=== PATIENT | female | born 1975 | race African-American/Black ===

== ENCOUNTER 2018-02-24 00:25 | Emergency (ER) | payer OTHER ==
[2018-02-24 00:48] VITALS: BP 128/82; PULSE 82; TEMP 96.6; BMI 28.1
[2018-02-24] MEDS ORDERED: ACETAMINOPHEN 325 MG TABLET (FP) PO ONE (01:28)
[2018-02-24] MEDS ORDERED: AMOX TR/POT CLAV 875MG/125MG TABLETS (FP) PO ONE (01:28)
[2018-02-24] MEDS ORDERED: IBUPROFEN 600 MG TABLET (FP) PO ONE ×2 (01:28→01:58)
[2018-02-24] MEDS ORDERED: HALOPERIDOL LACTATE 5 MG/ML IM ONE (01:34)
[2018-02-24] MEDS ORDERED: MIDAZOLAM HCL 2 MG/2 ML SINGLE DOSE VIAL IM ONE (01:34)
--- NOTE | 2018-02-24 01:34 | PDOC ---
History of Present Illness - General Exam Limitations: No Limitations - History of Present Illness Initial Comments: 02/24/18 05:02 Patient is a 42 year old female who endorses a PMHx of psychiatric disorder and multiple injuries to RLE who presents to the ED with complaint of right leg pain that began just prior to ED arrival. As per EMS patient was experiencing gradually increased right leg pain as well as associated left molar pain. EMS reports patient insisted on being taken to [facility] for evaluation from [facility] location. While in triage, pt became acutely agitated. On history, she is disorganized and seems intoxicated but will not admit to drug abuse. Her behavior continued to escalate during her ED evaluation and she ultimately required IM medication for patient and staff safety. 1:1 max obs. Denies chest pain, Sob. Denies nausea, vomiting. Denies contact with sick individuals, out of state travelling. Denies dysuria, hematuria. Denies diarrhea , constipation. Denies trauma to affected area. Denies any other symptoms. Allergies: None Social history: Lives in [facility] Surgical history: Right leg ludy placement. PMD: None <Jean-Paul Mascorro - Last Filed: 02/24/18 05:02> - General History Source: Patient <Bere Munoz Candice - Last Filed: 02/24/18 06:14> - General Chief Complaint: Psychiatric Stated Complaint: ALTERED MENTA STATUS Time Seen by Provider: 02/24/18 01:00 Past History <Jean-Paul Mascorro - Last Filed: 02/24/18 05:02> - Suicide/Smoking/Psychosocial Hx Smoking History: Unknown if ever smoked Have you smoked in the past 12 months: No Information on smoking cessation initiated: No Hx Alcohol Use: No Drug/Substance Use Hx: No <Bere Munoz - Last Filed: 02/24/18 06:14> - Past Medical History Allergies/Adverse Reactions: Allergies Allergy/AdvReac Type Severity Reaction Status Date / Time No Known Allergies Allergy Verified 02/24/18 00:48 Home Medications: Ambulatory Orders Amoxicillin/Potassium Clav [Amox-Clav 875-125 mg Tablet] 1 each PO BID #14 tablet 02/24/18 Review of Systems - Review of Systems Able to Perform ROS?: Yes Comments:: 02/24/18 05:02 See HPI. All other systems reviewed and unremarkable <Jean-Paul Mascorro - Last Filed: 02/24/18 05:02> *Physical Exam - Vital Signs Last Vital Signs Temp Pulse Resp BP Pulse Ox 96.6 F L 82 18 128/82 97 02/24/18 00:30 02/24/18 00:30 02/24/18 00:30 02/24/18 00:30 02/24/18 00:30 - Physical Exam Comments: 02/24/18 05:02 General Physical Exam: NAD, discheveled EOMI, JUDI MMM, OP WNL NCAT, no midline cervical tenderness RRR, nl s1/s2, no m/r/g CTABL, no w/r/r Soft, NTND No edema, WWP, no rash Neuro grossly intact, gait WNL, moving all 4 agitated, disorganized thought process, labile. <Jean-Paul Mascorro - Last Filed: 02/24/18 05:02> - Vital Signs Last Vital Signs Temp Pulse Resp BP Pulse Ox 96.6 F L 82 18 128/82 97 02/24/18 00:30 02/24/18 00:30 02/24/18 00:30 02/24/18 00:30 02/24/18 00:30 <Bere Munoz - Last Filed: 02/24/18 06:14> ED Treatment Course - Medications Given in the ED: ED Medications Discontinued Medications Generic Name Dose Route Start Last Admin Trade Name Ashlee PRN Reason Stop Dose Admin Acetaminophen 650 mg 02/24/18 01:28 02/24/18 01:35 Tylenol - PO 02/24/18 01:29 650 mg ONCE ONE Administration Amoxicillin/Clavulanate Potassium 1 tab 02/24/18 01:28 02/24/18 01:40 Augmentin - 875mg Tablet PO 02/24/18 01:29 1 tab ONCE ONE Administration Haloperidol 5 mg 02/24/18 01:34 02/24/18 01:37 Haldol Injection (Fast Acting) - IM 02/24/18 01:35 5 mg ONCE ONE Administration Ibuprofen 600 mg 02/24/18 01:28 02/24/18 01:40 Motrin - PO 02/24/18 01:29 600 mg ONCE ONE Administration Midazolam HCl 3 mg 02/24/18 01:34 02/24/18 01:38 Versed - IM 02/24/18 01:35 3 mg ONCE ONE Administration <Jean-Paul Mascorro - Last Filed: 02/24/18 05:02> Medical Decision Making - Medical Decision Making 02/24/18 01:30 42yoF w/ psychiatric history, homeless residing in [facility] in the [place], multiple traumatic injuries to RLE presents complaing of 2 weeks of L posterior lower molar pain and chronic RLE pain. Pt became agitated upon arrival to ER requiring security observation,and sedation for patient and staff safetyl. - tylenol, ibuprofe - augmentin for likely dental infection - to f/u w/ her own dentist trice. 02/24/18 06:12 Pt calm an appropriate this morning. States her [facility] "wanted me to get checked out" becuase she missed her medications x "1 day". Denies SI/HI/AH/VH thought process organized. DC. <Bere Munoz - Last Filed: 02/24/18 06:14> *DC/Admit/Observation/Transfer - Attestations Scribe Attestion: 02/24/18 05:03 Documentation prepared by Jean-Paul Mascorro, acting as emergency medical technician/driver for Bere Munoz MD. <Jean-Paul Mascorro - Last Filed: 02/24/18 05:02> - Discharge Dispostion Decision to Admit order: No <Bere Munoz - Last Filed: 02/24/18 06:14> Diagnosis at time of Disposition: Agitation - Discharge Dispostion Disposition: HOME Condition at time of disposition: Fair - Prescriptions Prescriptions: Amoxicillin/Potassium Clav [Amox-Clav 875-125 mg Tablet] 1 each PO BID #14 tablet - Referrals Referrals: Love Nunn MD [Primary Care Provider] - - Patient Instructions Additional Instructions: Ms. Hernandez was observed overnight and cleared. Please see your dentist today or tomorrow for evaluation of possible tooth infection. Take all of your home medications as prescribed. Do not skip doses or days. Do not drink alcohol do not use drugs.
[2018-02-24] MEDS ORDERED: MIDAZOLAM HCL 2 MG/2 ML SINGLE DOSE VIAL ONE (01:37)
[2018-02-24] MEDS ORDERED: HALOPERIDOL LACTATE 5 MG/ML ONE (01:37)
[2018-02-24] MEDS ORDERED: ACETAMINOPHEN 325 MG TABLET (FP) ONE (01:57)
[2018-02-24] MEDS ORDERED: AMOX TR/POT CLAV 875MG/125MG TABLETS (FP) ONE (01:58)
== END 2018-02-24 07:03 | disposition home or self-care (01) ==
LOC: JER 00:25
PROC: 3E033NZ Introduction of Analgesics, Hypnotics, Sedatives into Peripheral Vein, Percutaneous Approach (ICD-10-PCS; principal; 2018-02-24)
PROC: 3E033NZ Introduction of Analgesics, Hypnotics, Sedatives into Peripheral Vein, Percutaneous Approach (ICD-10-PCS; 2018-02-24)
DX: R45.1 Restlessness and agitation (principal); K04.7 Periapical abscess without sinus
CPT/HCPCS: 96372; 99281-25

== ENCOUNTER 2022-03-12 14:34 | Inpatient (IN) | payer OTHER ==
[2022-03-12 15:31] VITALS: BMI 26.2
[2022-03-12] MEDS ORDERED: MAGNESIUM HYDROX 2400MG/30ML ORAL SUSPENSION 30 ML CUP PO PRN (17:57)
[2022-03-12] MEDS ORDERED: BENZOCAINE/MENTHOL (CHLORASEPTIC ) LOZENGE MM PRN (17:57)
[2022-03-12] MEDS ORDERED: IBUPROFEN 400 MG TABLET (FP) PO PRN (17:57)
[2022-03-12] MEDS ORDERED: ONDANSETRON *ODT* 4 MG TABLET SL PRN (17:57)
[2022-03-12] MEDS ORDERED: NICOTINE POLACRILEX 4 MG GUM BUC PRN (17:57)
[2022-03-12] MEDS ORDERED: MAGNESIUM CITRATE 300 ML BOTTLE PO PRN (17:57)
[2022-03-12] MEDS ORDERED: LOPERAMIDE HCL 2 MG CAPSULE PO PRN (17:57)
[2022-03-12] MEDS ORDERED: BISMUTH SUBSALICYLATE 524 MG/30 ML PO PRN (17:57)
[2022-03-12] MEDS ORDERED: MAG HYDROX/AL HYDROX/SIMETH 30 ML UNIT-DOSE CUP PO PRN (17:57)
[2022-03-12] MEDS ORDERED: NALOXONE HCL (KLOXXADO) 8 MG SPRAY NS PRN (17:57)
[2022-03-12] MEDS ORDERED: ACETAMINOPHEN 325 MG TABLET (FP) PO PRN ×2 (17:57)
[2022-03-12] MEDS ORDERED: ALBUTEROL SO4 HFA INHALER IH PRN (17:59)
[2022-03-12] MEDS ORDERED: hydrOXYzine PAMOATE 25 MG CAPSULE (FP) PO ONE (19:30)
[2022-03-12] MEDS ORDERED: chlordiazePOXIDE HCL 25 MG CAPSULE ONE ×2 (19:30→22:17)
[2022-03-12] MEDS ORDERED: DICYCLOMINE HCL 10 MG CAPSULE ONE (19:30)
[2022-03-12] MEDS: chlordiazePOXIDE HCL 25 MG CAPSULE PO PRN (19:41)
[2022-03-12] MEDS: hydrOXYzine PAMOATE 25 MG CAPSULE (FP) PO PRN (19:41)
[2022-03-12] MEDS: DICYCLOMINE HCL 10 MG CAPSULE PO PRN (19:41)
[2022-03-12] MEDS ORDERED: IBUPROFEN 600 MG TABLET (FP) PO ONE (22:17)
[2022-03-12] MEDS: chlordiazePOXIDE HCL 25 MG CAPSULE PO SCH (22:19)
[2022-03-12] MEDS: IBUPROFEN 600 MG TABLET (FP) PO PRN (22:19)
[2022-03-12] MEDS: MELATONIN 5 MG TABLETS PO SCH (22:19)
[2022-03-12] MEDS: THIAMINE HCL 100 MG TABLET (FP) PO SCH (22:19)
[2022-03-13] MEDS ORDERED: chlordiazePOXIDE HCL 25 MG CAPSULE ONE (04:50)
[2022-03-13] MEDS ORDERED: IBUPROFEN 400 MG TABLET (FP) PO ONE (05:13)
[2022-03-13] MEDS: chlordiazePOXIDE HCL 25 MG CAPSULE PO SCH ×4 (05:19→22:18)
[2022-03-13] MEDS: NICOTINE 21 MG/24 HOURS TOPICAL PATCH TD SCH (10:00)
[2022-03-13] MEDS: METHOCARBAMOL 500 MG TABLET PO PRN ×2 (10:00→17:44)
[2022-03-13] MEDS ORDERED: TOPIRAMATE 200 MG TABLET PO ONE (10:00)
[2022-03-13] MEDS: PRENATAL VITAMINS W/ FOLIC ACID TABLET (FP) PO SCH (10:12)
[2022-03-13 11:12] LABS: HEMATOCRIT 28.5 % (32.4-45.2); MCH 23.1 pg (25.7-33.7); MCHC 31.4 g/dl (32.0-36.0); MEAN CELL VOLUME 73.6 fl (80-96); MEAN PLT VOLUME 8.2 fl (7.5-11.1); PLATELET COUNT 395 10^3/uL (134-434); RBC 3.87 M/mm3 (3.60-5.2); RDW 18.9 % (11.6-15.6); WHITE BLOOD COUNT 6.4 K/mm3 (4.0-10.0)
[2022-03-13] MEDS ORDERED: TOPIRAMATE 200 MG TABLET PO SCH (11:45)
[2022-03-13 12:49] LABS: BLOOD UREA NITROGEN 11.4 mg/dL (7-18); CALCIUM 8.5 mg/dL (8.5-10.1); CREATININE 0.5 mg/dL (0.55-1.3)
[2022-03-13 12:52] LABS: BILIRUBIN,TOTAL 0.6 mg/dL (0.2-1); TOT PROT 6.5 g/dl (6.4-8.2)
[2022-03-13] MEDS: hydrOXYzine PAMOATE 25 MG CAPSULE (FP) PO PRN ×2 (17:44→22:18)
[2022-03-13] MEDS: IBUPROFEN 600 MG TABLET (FP) PO PRN (18:36)
[2022-03-13] MEDS: NICOTINE 10 MG CARTRIDGE (INHALER) IH PRN (20:37)
[2022-03-13] MEDS: QUEtiapine FUMARATE 200 MG TABLET PO SCH (22:18)
[2022-03-13] MEDS: MELATONIN 5 MG TABLETS PO SCH (22:18)
[2022-03-13] MEDS: THIAMINE HCL 100 MG TABLET (FP) PO SCH (22:18)
[2022-03-13] MEDS: TOPIRAMATE 100 MG TABLET PO SCH (22:20)
[2022-03-14] MEDS: chlordiazePOXIDE HCL 25 MG CAPSULE PO SCH ×4 (05:48→22:29)
[2022-03-14] MEDS: TOPIRAMATE 100 MG TABLET PO SCH ×2 (10:28→22:28)
[2022-03-14] MEDS: PRENATAL VITAMINS W/ FOLIC ACID TABLET (FP) PO SCH (10:29)
[2022-03-14] MEDS: NICOTINE 21 MG/24 HOURS TOPICAL PATCH TD SCH (10:29)
[2022-03-14] MEDS: METHOCARBAMOL 500 MG TABLET PO PRN ×2 (10:31→22:31)
[2022-03-14] MEDS: METHYL SALICYLATE/MENTHOL OINT 30 GM TUBE TP SCH ×2 (12:54→22:30)
[2022-03-14] MEDS: FERROUS SO4 325 MG TABLET (FP) PO SCH ×2 (12:54→18:14)
[2022-03-14 14:01] VITALS: RESP 18
[2022-03-14] MEDS: chlordiazePOXIDE HCL 25 MG CAPSULE PO PRN (18:14)
[2022-03-14] MEDS: THIAMINE HCL 100 MG TABLET (FP) PO SCH (22:28)
[2022-03-14] MEDS: QUEtiapine FUMARATE 200 MG TABLET PO SCH (22:28)
[2022-03-14] MEDS: MELATONIN 5 MG TABLETS PO SCH (22:28)
[2022-03-14] MEDS: NICOTINE 10 MG CARTRIDGE (INHALER) IH PRN (23:05)
[2022-03-15] MEDS ORDERED: chlordiazePOXIDE HCL 10 MG CAPSULE PO PRN
[2022-03-15] MEDS: chlordiazePOXIDE HCL 10 MG CAPSULE PO SCH ×2 (06:19→10:39)
[2022-03-15 07:00] VITALS: BP 105/61; PULSE 83; TEMP 97.7
[2022-03-15] MEDS: FERROUS SO4 325 MG TABLET (FP) PO SCH ×2 (07:11→13:05)
[2022-03-15] MEDS: PRENATAL VITAMINS W/ FOLIC ACID TABLET (FP) PO SCH (10:38)
[2022-03-15] MEDS: DICYCLOMINE HCL 10 MG CAPSULE PO PRN (10:38)
[2022-03-15] MEDS: METHYL SALICYLATE/MENTHOL OINT 30 GM TUBE TP SCH (10:38)
[2022-03-15] MEDS: NICOTINE 21 MG/24 HOURS TOPICAL PATCH TD SCH (10:38)
[2022-03-15] MEDS: TOPIRAMATE 100 MG TABLET PO SCH (10:38)
[2022-03-15] MEDS: IBUPROFEN 600 MG TABLET (FP) PO PRN (10:39)
[2022-03-16] MEDS ORDERED: chlordiazePOXIDE HCL 10 MG CAPSULE PO SCH (05:00)
[2022-03-17] MEDS ORDERED: chlordiazePOXIDE HCL 10 MG CAPSULE PO ONE (05:00)
== END 2022-03-15 13:33 | disposition left against medical advice (07) | DRG 770 ==
LOC: YASAS 14:34 → Y6N 03-13 09:25
PROVIDERS: ADMIT Allergy & Immunology; ATTEND Surgery
PROC: HZ2ZZZZ Detoxification Services for Substance Abuse Treatment (ICD-10-PCS; principal; 2022-03-13)
DX: F10.230 Alcohol dependence with withdrawal, uncomplicated (principal); F14.20 Cocaine dependence, uncomplicated; F17.210 Nicotine dependence, cigarettes, uncomplicated; F19.282 Other psychoactive substance dependence with psychoactive substance-induced sleep disorder; F19.24 Other psychoactive substance dependence with psychoactive substance-induced mood disorder; F32.9 Major depressive disorder, single episode, unspecified; D64.9 Anemia, unspecified; J45.909 Unspecified asthma, uncomplicated; Z98.84 Bariatric surgery status
CPT/HCPCS: 36415; 80053; 81025; 85027; 86780; 87811; C9803-CS; U0003; U0005

== ENCOUNTER 2022-09-15 16:22 | Inpatient (IN) | payer OTHER ==
[2022-09-15 18:12] VITALS: BMI 22.3
[2022-09-15] MEDS ORDERED: BENZONATATE 200 MG CAPSULE PO PRN (20:31)
[2022-09-15] MEDS ORDERED: IBUPROFEN 400 MG TABLET (FP) PO PRN (20:31)
[2022-09-15] MEDS ORDERED: ONDANSETRON *ODT* 4 MG TABLET SL PRN (20:31)
[2022-09-15] MEDS ORDERED: POLYETHYLENE GLYCOL (HEALTHYLAX) 3350 17 GM PACKET PO PRN (20:31)
[2022-09-15] MEDS ORDERED: BENZOCAINE/MENTHOL (CHLORASEPTIC ) LOZENGE MM PRN (20:31)
[2022-09-15] MEDS ORDERED: NALOXONE HCL 0.4 MG/ML VIAL IM PRN (20:31)
[2022-09-15] MEDS ORDERED: MAG HYDROX/AL HYDROX/SIMETH 30 ML UNIT-DOSE CUP PO PRN (20:31)
[2022-09-15] MEDS ORDERED: LOPERAMIDE HCL 2 MG CAPSULE PO PRN (20:31)
[2022-09-15] MEDS ORDERED: MAGNESIUM HYDROX 2400MG/30ML ORAL SUSPENSION 30 ML CUP PO PRN (20:31)
[2022-09-15] MEDS ORDERED: BISMUTH SUBSALICYLATE 524 MG/30 ML PO PRN (20:31)
[2022-09-15] MEDS ORDERED: NALOXONE HCL (KLOXXADO) 8 MG SPRAY NS PRN (20:31)
[2022-09-15] MEDS ORDERED: ACETAMINOPHEN 325 MG TABLET (FP) PO PRN (20:31)
[2022-09-15] MEDS ORDERED: guaiFENesin 600 MG TABLET.ER (FP) PO PRN (20:31)
[2022-09-15] MEDS ORDERED: NICOTINE POLACRILEX 2 MG GUM BUC PRN (20:31)
[2022-09-15] MEDS ORDERED: DICYCLOMINE HCL 10 MG CAPSULE PO PRN (20:31)
[2022-09-15] MEDS ORDERED: ALBUTEROL SO4 HFA INHALER IH PRN (20:46)
[2022-09-15] MEDS: METHOCARBAMOL 500 MG TABLET PO PRN (22:37)
[2022-09-15] MEDS: MELATONIN 5 MG TABLETS PO SCH (22:38)
[2022-09-15] MEDS: THIAMINE HCL 100 MG TABLET (FP) PO SCH (22:38)
[2022-09-16] MEDS ORDERED: ALBUTEROL SO4 HFA INHALER IH PRN (09:48)
[2022-09-16] MEDS ORDERED: chlordiazePOXIDE HCL 25 MG CAPSULE PO PRN (10:08)
[2022-09-16] MEDS: NICOTINE 21 MG/24 HOURS TOPICAL PATCH TD SCH (10:17)
[2022-09-16] MEDS: METHOCARBAMOL 500 MG TABLET PO PRN ×2 (10:17→17:52)
[2022-09-16] MEDS: IBUPROFEN 600 MG TABLET (FP) PO PRN (10:17)
[2022-09-16] MEDS: PRENATAL VITAMINS W/ FOLIC ACID TABLET (FP) PO SCH (10:19)
[2022-09-16] MEDS: chlordiazePOXIDE HCL 25 MG CAPSULE PO SCH ×3 (10:36→22:09)
[2022-09-16 11:40] LABS: HEMATOCRIT 34.8 % (32.4-45.2); HEMOGLOBIN 11.2 GM/dL (10.7-15.3); MCHC 32.2 g/dl (32.0-36.0); MEAN CELL VOLUME 77.7 fl (80-96); MEAN PLT VOLUME 9.5 fl (7.5-11.1); PLATELET COUNT 312 10^3/uL (134-434); RBC 4.48 M/mm3 (3.60-5.2); WHITE BLOOD COUNT 6.5 K/mm3 (4.0-10.0)
[2022-09-16 11:41] LABS: POTASSIUM 4.9 mmol/L (3.5-5.1)
[2022-09-16] MEDS ORDERED: TOPIRAMATE 200 MG TABLET PO SCH (11:45)
[2022-09-16 11:46] LABS: CALCIUM 9.5 mg/dL (8.5-10.1)
[2022-09-16 11:47] LABS: ALBUMIN 3.9 g/dl (3.4-5.0); BLOOD UREA NITROGEN 17.8 mg/dL (7-18)
[2022-09-16 11:50] LABS: CREATININE 0.7 mg/dL (0.55-1.3)
[2022-09-16 11:52] LABS: TOT PROT 8.2 g/dl (6.4-8.2)
[2022-09-16 11:54] LABS: BILIRUBIN,TOTAL 0.5 mg/dL (0.2-1)
[2022-09-16] MEDS: TOPIRAMATE 100 MG TABLET PO SCH ×2 (13:55→22:09)
[2022-09-16] MEDS: QUEtiapine FUMARATE 200 MG TABLET PO SCH (22:09)
[2022-09-16] MEDS: THIAMINE HCL 100 MG TABLET (FP) PO SCH (22:09)
[2022-09-16] MEDS: MELATONIN 5 MG TABLETS PO SCH (22:11)
[2022-09-17] MEDS: chlordiazePOXIDE HCL 25 MG CAPSULE PO SCH ×4 (05:52→22:24)
[2022-09-17] MEDS: METHOCARBAMOL 500 MG TABLET PO PRN ×2 (05:54→18:01)
[2022-09-17] MEDS: TOPIRAMATE 100 MG TABLET PO SCH ×2 (10:08→22:23)
[2022-09-17] MEDS: PRENATAL VITAMINS W/ FOLIC ACID TABLET (FP) PO SCH (10:09)
[2022-09-17] MEDS: NICOTINE 21 MG/24 HOURS TOPICAL PATCH TD SCH (10:11)
[2022-09-17] MEDS: IBUPROFEN 600 MG TABLET (FP) PO PRN ×2 (10:13→22:26)
[2022-09-17] MEDS: QUEtiapine FUMARATE 200 MG TABLET PO SCH (22:23)
[2022-09-17] MEDS: MELATONIN 5 MG TABLETS PO SCH (22:24)
[2022-09-17] MEDS: THIAMINE HCL 100 MG TABLET (FP) PO SCH (22:26)
[2022-09-18] MEDS: chlordiazePOXIDE HCL 25 MG CAPSULE PO SCH ×4 (05:50→22:38)
[2022-09-18] MEDS: NICOTINE 21 MG/24 HOURS TOPICAL PATCH TD SCH (10:15)
[2022-09-18] MEDS: TOPIRAMATE 100 MG TABLET PO SCH ×2 (10:16→22:39)
[2022-09-18] MEDS: PRENATAL VITAMINS W/ FOLIC ACID TABLET (FP) PO SCH (10:16)
[2022-09-18] MEDS: IBUPROFEN 600 MG TABLET (FP) PO PRN (10:17)
[2022-09-18] MEDS: THIAMINE HCL 100 MG TABLET (FP) PO SCH (22:38)
[2022-09-18] MEDS: QUEtiapine FUMARATE 200 MG TABLET PO SCH (22:38)
[2022-09-18] MEDS: MELATONIN 5 MG TABLETS PO SCH (22:42)
[2022-09-19] MEDS ORDERED: chlordiazePOXIDE HCL 10 MG CAPSULE PO PRN
[2022-09-19] MEDS: chlordiazePOXIDE HCL 10 MG CAPSULE PO SCH ×3 (06:00→17:54)
[2022-09-19] MEDS: METHOCARBAMOL 500 MG TABLET PO PRN ×2 (06:05→17:55)
[2022-09-19] MEDS: IBUPROFEN 600 MG TABLET (FP) PO PRN (06:05)
[2022-09-19] MEDS: PRENATAL VITAMINS W/ FOLIC ACID TABLET (FP) PO SCH (10:52)
[2022-09-19] MEDS: TOPIRAMATE 100 MG TABLET PO SCH (10:53)
[2022-09-19] MEDS: NICOTINE 21 MG/24 HOURS TOPICAL PATCH TD SCH (10:53)
[2022-09-19 21:04] VITALS: BP 117/74; PULSE 84; RESP 17; TEMP 97.5
[2022-09-20] MEDS ORDERED: chlordiazePOXIDE HCL 10 MG CAPSULE PO SCH (05:00)
[2022-09-21] MEDS ORDERED: chlordiazePOXIDE HCL 10 MG CAPSULE PO ONE (05:00)
== END 2022-09-19 23:30 | disposition left against medical advice (07) | DRG 770 ==
LOC: YASAS 16:22 → Y6N 21:29 → UNDOADMIN 21:29
PROVIDERS: ADMIT Allergy & Immunology; ATTEND Surgery
PROC: HZ2ZZZZ Detoxification Services for Substance Abuse Treatment (ICD-10-PCS; principal; 2022-09-15)
DX: F10.230 Alcohol dependence with withdrawal, uncomplicated (principal); F12.20 Cannabis dependence, uncomplicated; F17.210 Nicotine dependence, cigarettes, uncomplicated; F19.24 Other psychoactive substance dependence with psychoactive substance-induced mood disorder; F41.8 Other specified anxiety disorders; J45.909 Unspecified asthma, uncomplicated; Z62.810 Personal history of physical and sexual abuse in childhood; Z98.84 Bariatric surgery status
CPT/HCPCS: 36415; 80053; 81025; 85027; 86780; 87811; C9803-CS; U0003; U0005

== ENCOUNTER 2022-10-14 16:54 | Inpatient (IN) | payer OTHER ==
[2022-10-14 19:04] VITALS: BMI 23.2
[2022-10-14] MEDS ORDERED: MAGNESIUM HYDROX 2400MG/30ML ORAL SUSPENSION 30 ML CUP PO PRN (23:39)
[2022-10-14] MEDS ORDERED: METHOCARBAMOL 500 MG TABLET PO PRN (23:39)
[2022-10-14] MEDS ORDERED: POLYETHYLENE GLYCOL (HEALTHYLAX) 3350 17 GM PACKET PO PRN (23:39)
[2022-10-14] MEDS ORDERED: ACETAMINOPHEN 325 MG TABLET (FP) PO PRN (23:39)
[2022-10-14] MEDS ORDERED: BISMUTH SUBSALICYLATE 524 MG/30 ML PO PRN (23:39)
[2022-10-14] MEDS ORDERED: NICOTINE 10 MG CARTRIDGE (INHALER) IH PRN (23:39)
[2022-10-14] MEDS ORDERED: DICYCLOMINE HCL 10 MG CAPSULE PO PRN (23:39)
[2022-10-14] MEDS ORDERED: MAG HYDROX/AL HYDROX/SIMETH 30 ML UNIT-DOSE CUP PO PRN (23:39)
[2022-10-14] MEDS ORDERED: BENZONATATE 200 MG CAPSULE PO PRN (23:39)
[2022-10-14] MEDS ORDERED: BENZOCAINE/MENTHOL (CHLORASEPTIC ) LOZENGE MM PRN (23:39)
[2022-10-14] MEDS ORDERED: NALOXONE HCL 0.4 MG/ML VIAL IM PRN (23:39)
[2022-10-14] MEDS ORDERED: IBUPROFEN 400 MG TABLET (FP) PO PRN (23:39)
[2022-10-14] MEDS ORDERED: guaiFENesin 600 MG TABLET.ER (FP) PO PRN (23:39)
[2022-10-14] MEDS ORDERED: ONDANSETRON *ODT* 4 MG TABLET SL PRN (23:39)
[2022-10-14] MEDS ORDERED: NALOXONE HCL (KLOXXADO) 8 MG SPRAY NS PRN (23:39)
[2022-10-14] MEDS ORDERED: LOPERAMIDE HCL 2 MG CAPSULE PO PRN (23:39)
[2022-10-15] MEDS ORDERED: ALBUTEROL SO4 HFA INHALER IH PRN (06:00)
[2022-10-15] MEDS: NICOTINE 21 MG/24 HOURS TOPICAL PATCH TD SCH (10:15)
[2022-10-15] MEDS: PRENATAL VITAMINS W/ FOLIC ACID TABLET (FP) PO SCH (10:15)
[2022-10-15] MEDS: IBUPROFEN 600 MG TABLET (FP) PO PRN ×2 (10:17→17:04)
[2022-10-15] MEDS: TOPIRAMATE 100 MG TABLET PO SCH ×2 (10:18→22:18)
[2022-10-15 11:22] LABS: HEMATOCRIT 33.2 % (32.4-45.2); HEMOGLOBIN 10.7 GM/dL (10.7-15.3); MCH 26.2 pg (25.7-33.7); MCHC 32.4 g/dl (32.0-36.0); MEAN CELL VOLUME 80.9 fl (80-96); PLATELET COUNT 293 10^3/uL (134-434); RDW 21.9 % (11.6-15.6); WHITE BLOOD COUNT 4.3 K/mm3 (4.0-10.0)
[2022-10-15 11:33] LABS: POTASSIUM 4.6 mmol/L (3.5-5.1)
[2022-10-15 11:44] LABS: BLOOD UREA NITROGEN 9.6 mg/dL (7-18); CALCIUM 8.8 mg/dL (8.5-10.1)
[2022-10-15 11:47] LABS: CREATININE 0.7 mg/dL (0.55-1.3)
[2022-10-15 11:48] LABS: TOT PROT 6.8 g/dl (6.4-8.2)
[2022-10-15 11:50] LABS: BILIRUBIN,TOTAL 0.9 mg/dL (0.2-1)
[2022-10-15] MEDS ORDERED: QUEtiapine FUMARATE 200 MG TABLET PO SCH (22:00)
[2022-10-15] MEDS ORDERED: MELATONIN 5 MG TABLETS PO SCH (22:00)
[2022-10-15] MEDS ORDERED: THIAMINE HCL 100 MG TABLET (FP) PO SCH (22:00)
[2022-10-16] MEDS: IBUPROFEN 600 MG TABLET (FP) PO PRN (06:31)
[2022-10-16 09:09] VITALS: BP 99/61; PULSE 86; RESP 18; TEMP 97.8
[2022-10-16] MEDS: PRENATAL VITAMINS W/ FOLIC ACID TABLET (FP) PO SCH (10:17)
[2022-10-16] MEDS: TOPIRAMATE 100 MG TABLET PO SCH (10:17)
[2022-10-16] MEDS: NICOTINE 21 MG/24 HOURS TOPICAL PATCH TD SCH (10:18)
== END 2022-10-16 11:00 | disposition home or self-care (01) | DRG 774 ==
LOC: YASAS 16:54 → Y6N 10-15 01:11
PROVIDERS: ADMIT Allergy & Immunology; ATTEND Surgery
PROC: HZ2ZZZZ Detoxification Services for Substance Abuse Treatment (ICD-10-PCS; principal; 2022-10-15)
DX: F10.230 Alcohol dependence with withdrawal, uncomplicated (principal); F14.20 Cocaine dependence, uncomplicated; F17.210 Nicotine dependence, cigarettes, uncomplicated; F19.282 Other psychoactive substance dependence with psychoactive substance-induced sleep disorder; F19.24 Other psychoactive substance dependence with psychoactive substance-induced mood disorder; F32.9 Major depressive disorder, single episode, unspecified; J45.20 Mild intermittent asthma, uncomplicated; R79.89 Other specified abnormal findings of blood chemistry; Z62.810 Personal history of physical and sexual abuse in childhood
CPT/HCPCS: 36415; 80053; 81025; 85027; 86780; 87635; 87811

== ENCOUNTER 2023-07-27 14:20 | Inpatient (IN) | payer OTHER ==
[2023-07-27 14:57] VITALS: BMI 21.9
[2023-07-27] MEDS ORDERED: IBUPROFEN 400 MG TABLET (FP) PO PRN (18:07)
[2023-07-27] MEDS ORDERED: ACETAMINOPHEN 325 MG TABLET (FP) PO PRN (18:07)
[2023-07-27] MEDS ORDERED: POLYETHYLENE GLYCOL (HEALTHYLAX) 3350 17 GM PACKET PO PRN (18:07)
[2023-07-27] MEDS ORDERED: BENZOCAINE/MENTHOL (CHLORASEPTIC ) LOZENGE MM PRN (18:07)
[2023-07-27] MEDS ORDERED: guaiFENesin 600 MG TABLET.ER (FP) PO PRN (18:07)
[2023-07-27] MEDS ORDERED: BENZONATATE 200 MG CAPSULE PO PRN (18:07)
[2023-07-27] MEDS ORDERED: MAGNESIUM HYDROX 2400MG/30ML ORAL SUSPENSION 30 ML CUP PO PRN (18:07)
[2023-07-27] MEDS ORDERED: MAG HYDROX/AL HYDROX/SIMETH 30 ML UNIT-DOSE CUP PO PRN (18:07)
[2023-07-27] MEDS ORDERED: LOPERAMIDE HCL 2 MG CAPSULE PO PRN (18:07)
[2023-07-27] MEDS ORDERED: NICOTINE POLACRILEX 2 MG LOZENGE BC PRN (18:07)
[2023-07-27] MEDS ORDERED: BISMUTH SUBSALICYLATE 524 MG/30 ML PO PRN (18:07)
[2023-07-27] MEDS: ONDANSETRON *ODT* 4 MG TABLET SL PRN (20:22)
[2023-07-27] MEDS: THIAMINE HCL 100 MG TABLET (FP) PO SCH (21:59)
[2023-07-27] MEDS: MELATONIN 5 MG TABLETS PO SCH (21:59)
[2023-07-27] MEDS: diazePAM 5 MG TABLET PO SCH (22:01)
[2023-07-27] MEDS: IBUPROFEN 600 MG TABLET (FP) PO PRN (22:27)
[2023-07-28] MEDS ORDERED: ALBUTEROL SO4 HFA INHALER IH PRN (08:33)
[2023-07-28] MEDS: TOPIRAMATE 100 MG TABLET PO SCH (09:13)
[2023-07-28] MEDS: PRENATAL VITAMINS W/ FOLIC ACID TABLET (FP) PO SCH (09:14)
[2023-07-28] MEDS: NICOTINE 21 MG/24 HOURS TOPICAL PATCH TD SCH (11:31)
[2023-07-28 11:52] LABS: HEMATOCRIT 32.8 % (32.4-45.2); HEMOGLOBIN 10.5 GM/dL (10.7-15.3); MCH 26.4 pg (25.7-33.7); MEAN CELL VOLUME 82.3 fl (80-96); MEAN PLT VOLUME 8.4 fl (7.5-11.1); PLATELET COUNT 365 10^3/uL (134-434); RBC 3.99 M/mm3 (3.60-5.2); RDW 18.3 % (11.6-15.6); WHITE BLOOD COUNT 5.5 K/mm3 (4.0-10.0)
[2023-07-28 12:09] LABS: CALCIUM 8.7 mg/dL (8.5-10.1)
[2023-07-28 12:10] LABS: ALBUMIN 2.7 g/dl (3.4-5.0); BLOOD UREA NITROGEN 11.6 mg/dL (7-18)
[2023-07-28 12:12] LABS: CREATININE 0.5 mg/dL (0.55-1.3)
[2023-07-28 12:14] LABS: BILIRUBIN,TOTAL 0.4 mg/dL (0.2-1); TOT PROT 6.3 g/dl (6.4-8.2)
[2023-07-28] MEDS: hydrOXYzine PAMOATE 25 MG CAPSULE (FP) PO PRN (17:24)
[2023-07-28] MEDS: METHOCARBAMOL 500 MG TABLET PO PRN (17:24)
[2023-07-28] MEDS: MELATONIN 5 MG TABLETS PO SCH (22:25)
[2023-07-28] MEDS: QUEtiapine FUMARATE 200 MG TABLET PO SCH (22:25)
[2023-07-29] MEDS: diazePAM 5 MG TABLET PO SCH (05:40)
[2023-07-29] MEDS: diazePAM 5 MG TABLET PO PRN (17:01)
[2023-07-30] MEDS: diazePAM 5 MG TABLET PO SCH (06:18)
[2023-07-30] MEDS: DICYCLOMINE HCL 10 MG CAPSULE PO PRN (09:57)
[2023-07-31] MEDS: diazePAM 5 MG TABLET PO ONE (05:34)
[2023-07-31 09:17] VITALS: BP 108/71; PULSE 93; RESP 18; TEMP 97.1
== END 2023-07-31 09:02 | disposition other institution (70) | DRG 774 ==
LOC: YASAS 14:20 → Y6N 18:18
PROVIDERS: ADMIT Allergy & Immunology; ATTEND Surgery
PROC: HZ2ZZZZ Detoxification Services for Substance Abuse Treatment (ICD-10-PCS; principal; 2023-07-27)
DX: F14.20 Cocaine dependence, uncomplicated (principal); F12.20 Cannabis dependence, uncomplicated; F17.210 Nicotine dependence, cigarettes, uncomplicated; F19.280 Other psychoactive substance dependence with psychoactive substance-induced anxiety disorder; F19.282 Other psychoactive substance dependence with psychoactive substance-induced sleep disorder; F19.24 Other psychoactive substance dependence with psychoactive substance-induced mood disorder; F32.9 Major depressive disorder, single episode, unspecified; J45.20 Mild intermittent asthma, uncomplicated; Z86.19 Personal history of other infectious and parasitic diseases; Z62.810 Personal history of physical and sexual abuse in childhood; Z63.8 Other specified problems related to primary support group
CPT/HCPCS: 36415; 80053; 84450; 85027; 86780; 93005; 93010; Q0162